=== PATIENT | male | born 1970 | race Caucasian/White ===

== ENCOUNTER 2022-04-19 21:41 | Emergency (ER) | payer OTHER ==
[2022-04-19] MEDS ORDERED: MORPHINE 2 MG/ML CARPUJECT IVP STA (22:13)
[2022-04-19 22:16] LABS: BASOPHILS # (AUTO) 0.1 10^3/uL (0.0-0.1); BASOPHILS % (AUTO) 0.9 %; EOSINOPHILS # (AUTO) 0.4 10^3/uL (0.0-0.7); EOSINOPHILS % (AUTO) 4.9 %; HCT - HEMATOCRIT 43.6 % (42.0-52.0); HGB - HEMOGLOBIN 14.4 g/dL (14.0-18.0); LYMPHOCYTES # (AUTO) 2.6 10^3/uL (1.5-3.5); LYMPHOCYTES % (AUTO) 34.9 %; MEAN CORPUSCULAR HEMOGLOBIN 30.4 pg (27.0-31.0); MEAN CORPUSCULAR VOLUME 92.2 fL (80.0-94.0); MONOCYTES # (AUTO) 0.6 10^3/uL (0.0-1.0); MONOCYTES % (AUTO) 7.3 %; NEUTROPHILS # (AUTO) 3.9 10^3/uL (1.5-6.6); NEUTROPHILS % (AUTO) 51.7 %; PLT - PLATELET COUNT 200 10^3/uL (130-450); RED BLOOD COUNT 4.73 10^6/uL (4.70-6.10); RED CELL DISTRIBUTION WIDTH 11.9 % (12.0-15.0); WHITE BLOOD COUNT 7.6 x10^3/uL (4.8-10.8)
[2022-04-19 22:31] LABS: ALBUMIN 4.4 g/dL (3.2-5.5); ALBUMIN/GLOBULIN RATIO 1.7 (1.0-2.2); BILIRUBIN,TOTAL 0.9 mg/dL (0.2-1.0); CALCIUM 9.2 mg/dL (8.5-10.3); CREATININE 1.1 mg/dL (0.6-1.2); POTASSIUM 3.8 mmol/L (3.5-5.0)
[2022-04-19] MEDS ORDERED: KETAMINE 500 MG/10 ML VIAL ONE (23:07)
[2022-04-19] MEDS ORDERED: ETOMIDATE 40 MG/20 ML VIAL IVP ONE (23:11)
[2022-04-19] MEDS ORDERED: ROCURONIUM 50 MG/5 ML VIAL ONE (23:12)
[2022-04-20] MEDS ORDERED: methocarbamoL 500 MG TABLET PO STA (00:06)
[2022-04-20] MEDS ORDERED: KETOROLAC 15 MG/ML VIAL IVP STA (00:06)
[2022-04-20] MEDS ORDERED: LIDOCAINE PATCH 5% TOP STA (00:06)
--- NOTE | 2022-04-20 00:36 | XRAY Report ---
PROCEDURE: Chest 1 View X-Ray INDICATIONS: Chest pain TECHNIQUE: One view of the chest was acquired. COMPARISON: None. FINDINGS: Surgical changes and devices: None. Lungs and pleura: No pleural effusions or pneumothorax. Lungs are clear. Mediastinum: Mediastinal contours appear normal. Heart size is normal. Bones and chest wall: No suspicious bony lesions. Overlying soft tissues appear unremarkable. IMPRESSION: No acute cardiopulmonary process demonstrated radiographically. Reviewed by: Geronimo Wiggins MD on 04/20/2022 12:34 AM PDT Approved by: Geronimo Wiggins MD on 04/20/2022 12:34 AM PDT Station ID: [id number]
--- NOTE | 2022-04-20 00:40 | ED Physician Documentation ---
PD HPI CHEST PAIN - Stated complaint Stated Complaint: CHEST PX - Chief complaint Chief Complaint: Cardiac - History obtained from History obtained from: Patient - History of Present Illness Timing - onset: Today - Additional information Additional information: 52-year-old male with history of [id number] diabetes presents for evaluation of left-sided, suprasternal, sharp, nonradiating chest pain that began earlier today. Patient states that his pain was initially mild, however at dinner he accidentally choked on some water and after that he had severe worsening of his chest pain. No medications taken for pain prior to arrival. He called the [facility] nursing line, and they referred him to the ER for evaluation. Patient reports father has had bypass surgery in his 70s, denies other early family history of heart disease. Review of Systems Ten Systems: 10 systems reviewed and negative Constitutional: denies: Fever, Chills, Myalgias Cardiac: reports: Chest pain / pressure. denies: Palpitations, Pedal edema Respiratory: denies: Dyspnea, Cough GI: denies: Abdominal Pain, Abdominal Swelling, Nausea : denies: Dysuria, Frequency, Hesitancy PD PAST MEDICAL HISTORY - Past Medical History Past Medical History: Yes Cardiovascular: High cholesterol Endocrine/Autoimmune: Type 1 diabetes GI: GERD - Past Surgical History Past Surgical History: No - Present Medications Home Medications: Ambulatory Orders Medication Instructions Recorded Confirmed Atorvastatin [Lipitor] 40 mg PO DAILY 04/19/22 04/19/22 Metformin HCl [Metformin ER 500 mg PO BID 04/19/22 04/19/22 Osmotic] Pantoprazole Sodium 40 mg PO DAILY 04/19/22 04/19/22 Lidocaine Patch 5% [Lidoderm Patch] 1 patch TOP DAILY PRN #10 patch 04/20/22 methocarbamoL [Robaxin] 500 mg PO Q6H #20 tablet 04/20/22 - Allergies Allergies/Adverse Reactions: Allergies Allergy/AdvReac Type Severity Reaction Status Date / Time Penicillins Allergy Rash Verified 04/19/22 22:00 - Social History Does the pt smoke?: No Smoking Status: Never smoker Does the pt drink ETOH?: No Does the pt have substance abuse?: No - Immunizations Immunizations are current?: Yes - POLST Patient has POLST: No PD ED PE NORMAL - Vitals Vital signs reviewed: Yes - General General: Alert and oriented X 3, Well developed/nourished, Other (in pain) - HEENT HEENT: Atraumatic, PERRL, EOMI - Neck Neck: Supple, no meningeal sign, No adenopathy, C-Spine cleared by NEXUS criteria - Cardiac Cardiac: No murmur, Strong equal pulses, Other (L sided pec wall tenderness to palpation) - Respiratory Respiratory: No respiratory distress, Clear bilaterally - Abdomen Abdomen: Soft, Non tender, Non distended - Back Back: No CVA TTP, No spinal TTP - Derm Derm: Normal color, Warm and dry, No rash - Extremities Extremities: No deformity, No tenderness to palpate, Normal ROM s pain, No edema - Neuro Neuro: Alert and oriented X 3, 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, No motor deficit, No sensory deficit, Normal speech - Psych Psych: Normal mood, Normal affect Results - Vitals Vitals: Vital Signs - 24 hr 04/19/22 04/20/22 21:48 00:55 Temperature 37.0 C Heart Rate 83 63 Respiratory 20 17 Rate Blood Pressure 148/74 H 135/83 H O2 Saturation 100 98 Oxygen O2 Source Room air - EKG (time done) 2149 Rate: Rate (enter#) (79) Rhythm: NSR [place]: Normal Intervals: Normal NE QRS: Normal Ischemia: Normal ST segments - Labs Labs: Laboratory Tests 04/19/22 04/19/22 04/19/22 22:13 22:13 22:13 WBC 7.6 RBC 4.73 Hgb 14.4 Hct 43.6 MCV 92.2 MCH 30.4 MCHC 33.0 RDW 11.9 L Plt Count 200 MPV 10.0 Neut # (Auto) 3.9 Lymph # (Auto) 2.6 [place] # (Auto) 0.6 Eos # (Auto) 0.4 Baso # (Auto) 0.1 Absolute Nucleated RBC 0.00 Nucleated RBC % 0.0 Sodium 136 Potassium 3.8 Chloride 98 L Carbon Dioxide 28 Anion Gap 10.0 BUN 20 Creatinine 1.1 Estimated GFR (MDRD) 71 L Glucose 225 H Calcium 9.2 Total Bilirubin 0.9 AST 24 ALT 28 Alkaline Phosphatase 43 Troponin I High Sens 4.0 Total Protein 7.0 Albumin 4.4 Globulin 2.6 Albumin/Globulin Ratio 1.7 Lipase 36 04/19/22 23:35 WBC RBC Hgb Hct MCV MCH MCHC RDW Plt Count MPV Neut # (Auto) Lymph # (Auto) [place] # (Auto) Eos # (Auto) Baso # (Auto) Absolute Nucleated RBC Nucleated RBC % Sodium Potassium Chloride Carbon Dioxide Anion Gap BUN Creatinine Estimated GFR (MDRD) Glucose Calcium Total Bilirubin AST ALT Alkaline Phosphatase Troponin I High Sens 4.0 Total Protein Albumin Globulin Albumin/Globulin Ratio Lipase PD MEDICAL DECISION MAKING - ED course Complexity details: reviewed results, re-evaluated patient, considered differential, d/w patient ED course: 52-year-old male presents for sharp suprasternal chest pain after choking on food at home. Reproducible to palpation, EKG is sinus rhythm. Patient however does have risk factors for coronary disease, will obtain cardiac work-up. If negative will discharge home with PCP follow-up. Troponins are negative x2, patient reports improvement after Toradol and Robaxin. Patient will be discharged home at this time, he was instructed to take Tylenol and Motrin as needed for pain, he will be given a course of Robaxin as well as lidocaine patches to see if this improves his suprasternal chest pain. Patient states that he is happy that his troponins are negative and he will follow-up with his primary care physician on Friday. Departure - Departure Disposition: , Self Care Clinical Impression: Chest pain Condition: Stable Instructions: ED Chest Pain Atypical Unkn Cause Prescriptions: Lidocaine Patch 5% [Lidoderm Patch] 1 patch TOP DAILY PRN #10 patch PRN Reason: Pain methocarbamoL [Robaxin] 500 mg PO Q6H #20 tablet Comments: You have been seen in the ER today for chest pain. At this time your EKG, troponin, and chest x-ray are all normal. At this time I highly recommend that you follow-up with your primary care physician as soon as possible for further investigation of why you are having this chest pain. Take anti-inflammatories and Tylenol as needed for pain. You will be discharged with a muscle relaxer and a topical patch for pain relief. Do gentle exercises that we will stretch her chest wall to help alleviate pain. Discharge Date/Time: 04/20/22 00:55
[2022-04-20 00:58] VITALS: BP 135/83
== END 2022-04-20 00:55 | disposition home or self-care (01) ==
LOC: ED 21:41
DX: R07.89 Other chest pain (principal); E10.9 Type 1 diabetes mellitus without complications; Z79.84 Long term (current) use of oral hypoglycemic drugs
CPT/HCPCS: 36415; 71045; 80053; 83690; 84484; 85025; 93005; 96374; 96375; 99284; A9270